=== PATIENT | male | born 1970 | race African-American/Black ===

== ENCOUNTER 2018-12-10 08:39 | Inpatient (IN) | payer OTHER ==
[2018-12-10 09:05] VITALS: BMI 35.2
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
[2018-12-10] MEDS ORDERED: P-EPHED 60MG/TRIPROLIDI 2.5MG TABLET PO PRN (11:03)
[2018-12-10] MEDS ORDERED: MAGNESIUM CITRATE 300 ML BOTTLE PO PRN (11:03)
[2018-12-10] MEDS ORDERED: ACETAMINOPHEN 325 MG TABLET (FP) PO PRN (11:03)
[2018-12-10] MEDS ORDERED: MAGNESIUM HYDROX 2400MG/30ML ORAL SUSPENSION 30 ML CUP PO PRN (11:03)
[2018-12-10] MEDS ORDERED: MAG HYDROX/AL HYDROX/SIMETH 30 ML UNIT-DOSE CUP PO PRN (11:03)
[2018-12-10] MEDS ORDERED: MENTHOL/PHENOL 1 EACH UD MM PRN (11:03)
[2018-12-10] MEDS ORDERED: chlordiazePOXIDE HCL 25 MG CAPSULE PO PRN (11:03)
[2018-12-10] MEDS: guaiFENesin/D-METHORPHAN HB 10 ML UNIT-DOSE CUPS PO PRN (17:37)
[2018-12-10] MEDS: chlordiazePOXIDE HCL 25 MG CAPSULE PO SCH ×2 (17:37→22:08)
[2018-12-10] MEDS ORDERED: MELATONIN 5 MG TABLETS PO PRN (22:00)
[2018-12-10] MEDS: THIAMINE HCL 100 MG TABLET (FP) PO SCH (22:08)
[2018-12-11] MEDS: chlordiazePOXIDE HCL 25 MG CAPSULE PO SCH ×4 (05:07→22:01)
[2018-12-11] MEDS: IBUPROFEN 400 MG TABLET (FP) PO PRN ×2 (05:07→22:01)
--- NOTE | 2018-12-11 09:48 | CONSULT ---
[facility] Psychiatric Consult - Data Date of interview: 12/11/18 Admission source: [facility] Identifying data: Patient is a 48 year old single male, father of one, unemployed, homeless, and is supported by [facility]. This is one of multiple admissions for patient. Patient admitted to for alcohol dependence. Substance Abuse History: Smoking Cessation. Smoking history: Current every day smoker. Have you smoked in the past 12 months: Yes. Aproximately how many cigarettes per day: 6. Cigars Per Day: 0. Hx Chewing Tobacco Use: No. Initiated information on smoking cessation: No. - Substances Abused. Alcohol. Route: Oral. Frequency: Daily. Amount used: 0.5-1 pint of vodka,12 12oz cans of beer. Age of first use: 5. Date of Last Use: 12/10/18. Crack. Route: Smoking. Frequency: 1-3 times last 30 days. Amount used: $100. Age of first use: 23. Date of Last Use: 12/05/18 Medical History: denies. endorses good health. Psychiatric History: Patient's first psychiatric contact was in 1986 after a suicide attempt by a combination of pills and alcohol. He was admitted to [facility] in [place] and presribed prozac, depakote, and pamelor. Mr. Andrea reports additional hospitalizations at [facility] in the . Patient's most recent hospitalization was at [facility] in 2002. He was tried on zoloft in addition to other psychotropic agents. Mr. Andrea reports past diagnosis of depression and schizoaffective disorder. Most recent psychiatric care was provided at [facility] in [facility] approximately 5-6 months ago. He was prescribed seroquel 200mg and trazodone 150mg HS although states he has not taken either medication in several months. Patient denies psychotic symptoms, no psychosis noted. At present he reports stable mood but is experiencing difficulty sleeping. Physical/Sexual Abuse/Trauma History: denies. Mental Status Exam - Mental Status Exam Alert and Oriented to: Time, Place, Person Cognitive Function: Good Patient Appearance: Well Groomed Mood: Hopeful Affect: Appropriate Patient Behavior: Appropriate, Cooperative Speech Pattern: Clear, Appropriate Voice Loudness: Normal Thought Process: Intact, Goal Oriented Thought Disorder: Not Present Hallucinations: Denies Suicidal Ideation: Denies Homicidal Ideation: Denies Insight/Judgement: Poor Sleep: Poorly Appetite: Fair Muscle strength/Tone: Normal Gait/Station: Normal Psychiatric Findings - Problem List ([place] 1, 2,3) (1) Substance-induced sleep disorder Current Visit: Yes Status: Acute (2) Cocaine dependence Current Visit: No Status: Chronic Qualifiers: Substance use status: uncomplicated Qualified Code(s): F14.20 - Cocaine dependence, uncomplicated (3) Nicotine dependence Current Visit: No Status: Chronic Qualifiers: Nicotine product type: cigarettes Substance use status: uncomplicated Qualified Code(s): F17.210 - Nicotine dependence, cigarettes, uncomplicated (4) Alcohol dependence with uncomplicated withdrawal Current Visit: Yes Status: Acute - Initial Treatment Plan Initial Treatment Plan: Psychoeducation provided. Detoxification in progress. Will order Trazodone 50mg qhs. Benefits and side effects discussed. Verbal consent given.
[2018-12-11] MEDS: PRENATAL VITAMINS W/ FOLIC ACID TABLET (FP) PO SCH (10:10)
[2018-12-11] MEDS: guaiFENesin/D-METHORPHAN HB 10 ML UNIT-DOSE CUPS PO PRN ×2 (10:11→22:01)
[2018-12-11 10:14] LABS: HEMATOCRIT 40.5 % (35.4-49); HEMOGLOBIN 12.9 GM/dL (11.7-16.9); MCH 28.4 pg (25.7-33.7); MCHC 31.8 g/dl (32.0-35.9); MEAN CELL VOLUME 89.4 fl (80-96); MEAN PLT VOLUME 8.1 fl (7.5-11.1); PLATELET COUNT 290 K/MM3 (134-434); RBC 4.53 M/mm3 (4.00-5.60); RDW 15.2 % (11.9-15.9); WHITE BLOOD COUNT 5.9 K/mm3 (4.0-10.0)
[2018-12-11 10:27] LABS: ALBUMIN 3.6 g/dl (3.4-5.0); ALK PHOS 58 U/L (45-117); ANION GAP 6 MMOL/L (8-16); BILIRUBIN,TOTAL 0.5 mg/dL (0.2-1); BLOOD UREA NITROGEN 15 mg/dL (7-18); CALCIUM 8.9 mg/dL (8.5-10.1); CHLORIDE 108 mmol/L (98-107); CO2 26 mmol/L (21-32); CREATININE 1.2 mg/dL (0.55-1.3); GLUCOSE,RANDOM 113 mg/dL (74-106); POTASSIUM 4.2 mmol/L (3.5-5.1); SGOT/AST 41 U/L (15-37); SGPT/ALT 53 U/L (13-61); SODIUM 140 mmol/L (136-145); TOT PROT 6.7 g/dl (6.4-8.2)
--- NOTE | 2018-12-11 15:26 | PN ---
S CIWA - CIWA Score Nausea/Vomitin Muscle Tremors: 4-Moderate,w/Arms Extend Anxiety: 0-No Anxiety, at Ease Agitation: 0-Normal Activity Paroxysmal Sweats: 3 Orientation: 0-Oriented Tacttile Disturbances: 2-Mild Itch/Numbness/Burn Auditory Disturbances: 0-None Visual Disturbances: 2-Mild Sensitivity Headache: 0-None Present CIWA-Ar Total Score: 14 BHS Progress Note (SOAP) Subjective: Nausea, Diarrhea, Body Aches, Tremors, Hot / Cold Sensations, Sweating. Objective: PATIENT A & O X 3, OBSERVED AMBULATING ON UNIT. IN NO ACUTE DISTRESS. 12/11/18 15:24 Vital Signs Temperature 97.7 F 12/11/18 13:10 Pulse Rate 82 12/11/18 13:10 Respiratory Rate 18 12/11/18 13:10 Blood Pressure 112/77 12/11/18 13:10 O2 Sat by Pulse Oximetry (%) Laboratory Tests 12/10/18 12/11/18 12/11/18 11:30 05:45 05:45 WBC 5.9 RBC 4.53 Hgb 12.9 Hct 40.5 MCV 89.4 MCH 28.4 MCHC 31.8 L RDW 15.2 Plt Count 290 MPV 8.1 Sodium 140 Potassium 4.2 Chloride 108 H Carbon Dioxide 26 Anion Gap 6 L BUN 15 Creatinine 1.2 Creat Clearance w eGFR > 60 Random Glucose 113 H Calcium 8.9 Total Bilirubin 0.5 AST 41 H ALT 53 Alkaline Phosphatase 58 Total Protein 6.7 Albumin 3.6 RPR Titer HIV 1&2 Antibody Screen Negative HIV P24 Antigen Negative 12/11/18 05:45 WBC RBC Hgb Hct MCV MCH MCHC RDW Plt Count MPV Sodium Potassium Chloride Carbon Dioxide Anion Gap BUN Creatinine Creat Clearance w eGFR Random Glucose Calcium Total Bilirubin AST ALT Alkaline Phosphatase Total Protein Albumin RPR Titer Nonreactive HIV 1&2 Antibody Screen HIV P24 Antigen LABS NOTED. Assessment: 12/11/18 15:24 WITHDRAWAL SYMPTOMS. Plan: CONTINUE DETOX. INCREASE DAILY PO FLUID INTAKE. PRN IMMODIUM FOR DIARRHEA.
[2018-12-11] MEDS ORDERED: chlordiazePOXIDE 5 MG CAPSULE PO SCH (17:00)
[2018-12-11] MEDS ORDERED: traZODone HCL 50 MG TABLET (FP) PO SCH (22:00)
[2018-12-11] MEDS: THIAMINE HCL 100 MG TABLET (FP) PO SCH (22:01)
[2018-12-12] MEDS: IBUPROFEN 400 MG TABLET (FP) PO PRN ×2 (05:30→21:58)
[2018-12-12] MEDS: chlordiazePOXIDE 5 MG CAPSULE PO SCH ×4 (05:32→22:01)
[2018-12-12] MEDS: guaiFENesin/D-METHORPHAN HB 10 ML UNIT-DOSE CUPS PO PRN (05:33)
[2018-12-12] MEDS: PRENATAL VITAMINS W/ FOLIC ACID TABLET (FP) PO SCH (10:15)
--- NOTE | 2018-12-12 10:41 | PN ---
[facility] Progress Note Note: Psychiatric nurse practitioner note: Patient reports difficulty sleeping last night. Mr. Andrea is requesting an increase in trazodone dose. Will increase trazodone 50mg to 100mg HS. Benefits and side effects discussed. Verbal consent given.
--- NOTE | 2018-12-12 14:37 | PN ---
S CIWA - CIWA Score Nausea/Vomitin-No Nausea/No Vomiting Muscle Tremors: None Anxiety: 1-Mildly Anxious Agitation: 0-Normal Activity Paroxysmal Sweats: 3 Orientation: 0-Oriented Tacttile Disturbances: 2-Mild Itch/Numbness/Burn Auditory Disturbances: 0-None Visual Disturbances: 2-Mild Sensitivity Headache: 0-None Present CIWA-Ar Total Score: 8 BHS Progress Note (SOAP) Subjective: Stomach Cramping, Nausea, Sweating, Nasal Congestion. Objective: PATIENT A & O X 3, OBSERVED AMBULATING ON UNIT. IN NO ACUTE DISTRESS. 12/12/18 14:36 Vital Signs Temperature 98.5 F 12/12/18 13:28 Pulse Rate 105 H 12/12/18 13:28 Respiratory Rate 18 12/12/18 13:28 Blood Pressure 114/69 12/12/18 13:28 O2 Sat by Pulse Oximetry (%) Laboratory Tests 12/10/18 12/11/18 12/11/18 11:30 05:45 05:45 WBC 5.9 RBC 4.53 Hgb 12.9 Hct 40.5 MCV 89.4 MCH 28.4 MCHC 31.8 L RDW 15.2 Plt Count 290 MPV 8.1 Sodium 140 Potassium 4.2 Chloride 108 H Carbon Dioxide 26 Anion Gap 6 L BUN 15 Creatinine 1.2 Creat Clearance w eGFR > 60 Random Glucose 113 H Calcium 8.9 Total Bilirubin 0.5 AST 41 H ALT 53 Alkaline Phosphatase 58 Total Protein 6.7 Albumin 3.6 RPR Titer HIV 1&2 Antibody Screen Negative HIV P24 Antigen Negative 12/11/18 05:45 WBC RBC Hgb Hct MCV MCH MCHC RDW Plt Count MPV Sodium Potassium Chloride Carbon Dioxide Anion Gap BUN Creatinine Creat Clearance w eGFR Random Glucose Calcium Total Bilirubin AST ALT Alkaline Phosphatase Total Protein Albumin RPR Titer Nonreactive HIV 1&2 Antibody Screen HIV P24 Antigen LABS NOTED. Assessment: 12/12/18 14:36 WITHDRAWAL SYMPTOMS. Plan: CONTINUE DETOX. FLONASE FOR NASAL CONGESTION.
[2018-12-12] MEDS ORDERED: chlordiazePOXIDE HCL 10 MG CAPSULE PO SCH (17:00)
[2018-12-12] MEDS: THIAMINE HCL 100 MG TABLET (FP) PO SCH (22:00)
[2018-12-12] MEDS: FLUTICASONE PROP 0.05% 16 GM NASAL SPRAY NS SCH (22:00)
[2018-12-12] MEDS: traZODone HCL 100 MG TABLET (FP) PO SCH (22:00)
[2018-12-12] MEDS: AMMONIUM LACTATE 12% LOTION 225 GM BOTTLE TP SCH (22:02)
[2018-12-13] MEDS: IBUPROFEN 400 MG TABLET (FP) PO PRN ×3 (04:28→22:10)
[2018-12-13] MEDS: chlordiazePOXIDE 5 MG CAPSULE PO SCH (05:46)
[2018-12-13] MEDS: PRENATAL VITAMINS W/ FOLIC ACID TABLET (FP) PO SCH (10:44)
[2018-12-13] MEDS: FLUTICASONE PROP 0.05% 16 GM NASAL SPRAY NS SCH ×2 (10:44→22:09)
[2018-12-13] MEDS: guaiFENesin/D-METHORPHAN HB 10 ML UNIT-DOSE CUPS PO PRN (10:45)
[2018-12-13] MEDS: chlordiazePOXIDE HCL 10 MG CAPSULE PO SCH ×3 (10:45→22:10)
[2018-12-13] MEDS: AMMONIUM LACTATE 12% LOTION 225 GM BOTTLE TP SCH ×2 (10:47→22:09)
--- NOTE | 2018-12-13 13:58 | PN ---
BHS Progress Note (SOAP) Subjective: Chills, sweating, body aches, nausea, diarrhea, interrupted sleep Objective: 12/13/18 13:55 Last Vital Signs Temp Pulse Resp BP Pulse Ox 96.4 F L 79 18 109/76 12/13/18 10:22 12/13/18 10:22 12/13/18 10:22 12/13/18 10:22 Laboratory Tests 12/10/18 12/11/18 12/11/18 11:30 05:45 05:45 WBC 5.9 RBC 4.53 Hgb 12.9 Hct 40.5 MCV 89.4 MCH 28.4 MCHC 31.8 L RDW 15.2 Plt Count 290 MPV 8.1 Sodium 140 Potassium 4.2 Chloride 108 H Carbon Dioxide 26 Anion Gap 6 L BUN 15 Creatinine 1.2 Creat Clearance w eGFR > 60 Random Glucose 113 H Calcium 8.9 Total Bilirubin 0.5 AST 41 H ALT 53 Alkaline Phosphatase 58 Total Protein 6.7 Albumin 3.6 RPR Titer HIV 1&2 Antibody Screen Negative HIV P24 Antigen Negative 12/11/18 05:45 WBC RBC Hgb Hct MCV MCH MCHC RDW Plt Count MPV Sodium Potassium Chloride Carbon Dioxide Anion Gap BUN Creatinine Creat Clearance w eGFR Random Glucose Calcium Total Bilirubin AST ALT Alkaline Phosphatase Total Protein Albumin RPR Titer Nonreactive HIV 1&2 Antibody Screen HIV P24 Antigen Labs reviewed Assessment: 12/13/18 13:56 Withdrawal symptoms Plan: Continue detox Encouraged PO water intake
[2018-12-13] MEDS ORDERED: traZODone HCL 50 MG TABLET (FP) ONE (21:44)
[2018-12-13] MEDS: THIAMINE HCL 100 MG TABLET (FP) PO SCH (22:08)
[2018-12-13] MEDS: traZODone HCL 100 MG TABLET (FP) PO SCH (22:09)
[2018-12-14] MEDS: chlordiazePOXIDE HCL 10 MG CAPSULE PO SCH (05:48)
[2018-12-14] MEDS: IBUPROFEN 400 MG TABLET (FP) PO PRN (05:48)
--- NOTE | 2018-12-14 08:30 | DS ---
[facility] Detox Discharge Summary Admission Date: 12/10/18 Discharge Date: 12/14/18 - History Present History: Alcohol Dependence Additional Comments: 48 years old male admitted on 12/10/18 for alcohol withdrawal stabilization completed detox regimen aftercare [facility] - Physical Exam Results Vital Signs: Vital Signs Temperature 97.5 F L 12/14/18 06:26 Pulse Rate 76 12/14/18 06:26 Respiratory Rate 17 12/14/18 06:26 Blood Pressure 104/61 12/14/18 06:26 O2 Sat by Pulse Oximetry (%) Pertinent Admission Physical Exam Findings: alcohol withdrawal sx Laboratory Last Values WBC 5.9 K/mm3 (4.0-10.0) 12/11/18 05:45 RBC 4.53 M/mm3 (4.00-5.60) 12/11/18 05:45 Hgb 12.9 GM/dL (11.7-16.9) 12/11/18 05:45 Hct 40.5 % (35.4-49) 12/11/18 05:45 MCV 89.4 fl (80-96) 12/11/18 05:45 MCH 28.4 pg (25.7-33.7) 12/11/18 05:45 MCHC 31.8 g/dl (32.0-35.9) L 12/11/18 05:45 RDW 15.2 % (11.9-15.9) 12/11/18 05:45 Plt Count 290 K/MM3 (134-434) 12/11/18 05:45 MPV 8.1 fl (7.5-11.1) 12/11/18 05:45 Sodium 140 mmol/L (136-145) 12/11/18 05:45 Potassium 4.2 mmol/L (3.5-5.1) 12/11/18 05:45 Chloride 108 mmol/L (98-107) H 12/11/18 05:45 Carbon Dioxide 26 mmol/L (21-32) 12/11/18 05:45 Anion Gap 6 MMOL/L (8-16) L 12/11/18 05:45 BUN 15 mg/dL (7-18) 12/11/18 05:45 Creatinine 1.2 mg/dL (0.55-1.3) 12/11/18 05:45 Creat Clearance w eGFR > 60 (>60) 12/11/18 05:45 Random Glucose 113 mg/dL (74-106) H 12/11/18 05:45 Calcium 8.9 mg/dL (8.5-10.1) 12/11/18 05:45 Total Bilirubin 0.5 mg/dL (0.2-1) 12/11/18 05:45 AST 41 U/L (15-37) H 12/11/18 05:45 ALT 53 U/L (13-61) 12/11/18 05:45 Alkaline Phosphatase 58 U/L (45-117) 12/11/18 05:45 Total Protein 6.7 g/dl (6.4-8.2) 12/11/18 05:45 Albumin 3.6 g/dl (3.4-5.0) 12/11/18 05:45 RPR Titer Nonreactive (NONREACTIVE) 12/11/18 05:45 HIV 1&2 Antibody Screen Negative 12/10/18 11:30 HIV P24 Antigen Negative 12/10/18 11:30 lab noted - Treatment Hospital Course: Detox Protocol Followed, Detoxed Safely, Responded well, Discharged Condition Good, Rehab Referral Accepted Patient has Accepted a Rehab Referral to: [facility] - Medication Discharge Medications: Ambulatory Orders Risperidone [Risperdal -] 1 mg PO BID #60 tablet 07/05/14 Naproxen Sodium [Aleve] 440 mg PO QID PRN 12/10/18 Quetiapine Fumarate [Seroquel -] 200 mg PO HS 12/10/18 traZODone HCL [Desyrel -] 150 mg PO HS 12/10/18 - Diagnosis (1) Alcohol dependence with uncomplicated withdrawal Status: Acute (2) Nicotine dependence Status: Acute Qualifiers: Nicotine product type: cigarettes Substance use status: in withdrawal Qualified Code(s): F17.213 - Nicotine dependence, cigarettes, with withdrawal - AMA Did Patient Leave Against Medical Advice: No
[2018-12-14 10:02] VITALS: BP 128/80; PULSE 93; TEMP 97.6
[2018-12-14] MEDS: PRENATAL VITAMINS W/ FOLIC ACID TABLET (FP) PO SCH (10:19)
[2018-12-14] MEDS: FLUTICASONE PROP 0.05% 16 GM NASAL SPRAY NS SCH (10:20)
[2018-12-14] MEDS: AMMONIUM LACTATE 12% LOTION 225 GM BOTTLE TP SCH (10:21)
== END 2018-12-14 11:22 | disposition home or self-care (01) | DRG 774 ==
LOC: YASAS 08:39 → Y3N 11:57
PROC: HZ2ZZZZ Detoxification Services for Substance Abuse Treatment (ICD-10-PCS; principal; 2018-12-10)
DX: F10.230 Alcohol dependence with withdrawal, uncomplicated (principal); F14.20 Cocaine dependence, uncomplicated; F17.213 Nicotine dependence, cigarettes, with withdrawal; F25.9 Schizoaffective disorder, unspecified; F32.9 Major depressive disorder, single episode, unspecified; F19.282 Other psychoactive substance dependence with psychoactive substance-induced sleep disorder; M54.5 Low back pain; G89.29 Other chronic pain; E66.9 Obesity, unspecified; Z68.35 Body mass index [BMI] 35.0-35.9, adult; Z91.013 Allergy to seafood; Z91.5 Personal history of self-harm; Z59.0 Homelessness
CPT/HCPCS: 36415; 80053; 85027; 86593; 87389